=== PATIENT | female | born 1980 | race Caucasian/White ===

== ENCOUNTER 2017-03-13 10:54 | Emergency (ER) | payer OTHER ==
[~2017-03-13] VITALS: Ht 165.1 cm; Wt 84.5 kg
[~2017-03-13 10:54] MED LIST: [UNRECOGNIZED DRUG - REMARK]
[2017-03-13 10:56] VITALS: Ht 165.1 cm; Wt 84.5 kg
[2017-03-13] MEDS ORDERED: ALBUTEROL 0.083% (NEB) 2.5 MG/3 ML AMP HHN STA (11:08)
[2017-03-13] MEDS ORDERED: PRED20TA PO (11:47)
[2017-03-13] MEDS ORDERED: IBUP-1542 PO (11:48)
[2017-03-13] MEDS ORDERED: ALBU18HF INHALATION (11:48)
--- NOTE | 2017-03-13 11:53 | ERD ---
ER Documentation Chief Complaint Date/Time DATE: 03/13/17 TIME: 11:51 Chief Complaint CHEST CONGESTION X 3 DAYS HPI This 36-year-old female presents with coughing and congestion for the last 3 days. She has no significant mucus. She denies chest pain, fever. She feels like "airWAY is blocked "she has history of asthma. She has additional complaint of bilateral heel pain worsening over the last few months. She denies any trauma or puncture wound. ROS All systems reviewed and are negative except as per history of present illness. Medications Home Meds Active Scripts Ibuprofen* (Motrin*) 600 Mg Tab, 600 MG PO Q6, #20 TAB Prov:ADY KEE MD 03/13/17 Albuterol Sulfate* (Ventolin HFA*) 18 Gm Hfa.aer.ad, 2 PUFF INHALATION Q4H for 6 Days, #1 INHALER Prov:ADY KEE MD 03/13/17 Prednisone* (Prednisone*) 20 Mg Tab, 40 MG PO DAILY for 5 Days, TAB Prov:ADY KEE MD 03/13/17 Reported Medications [Calming Med] No Conflict Check 04/10/14 Allergies Allergies: Coded Allergies: No Known Allergy (Verified , 04/10/14) PMhx/Soc Medical and Surgical Hx: pt denies Medical Hx, pt denies Surgical Hx History of Surgery: Yes (FOOT SX) Anesthesia Reaction: No Hx Neurological Disorder: No Hx Respiratory Disorders: No Hx Cardiac Disorders: No Hx Psychiatric Problems: No Hx Miscellaneous Medical Probl: No Hx Alcohol Use: Yes Hx Substance Use: No Hx Tobacco Use: No Smoking Status: Never smoker Physical Exam Vitals Vital Signs Date Time Temp Pulse Resp B/P Pulse Ox O2 Delivery O2 Flow Rate FiO2 03/13/17 11:26 98 18 99 21 03/13/17 10:56 98.1 98 18 122/74 99 Physical Exam Const: [], Ivd-yrx-[id number] Head: Atraumatic Eyes: Normal Conjunctiva ENT: Normal External Ears, Nose and Mouth. TMs and oropharynx normal. Pupils nasal congestion per Neck: Full range of motion..~ No meningismus. Resp: Clear to auscultation bilaterally. Slight forced wheeze without significant wheeze at rest no rales or retractions. Cardio: Regular rate and rhythm, no murmurs Abd: Soft, non tender, non distended. Normal bowel sounds Skin: No petechiae or rashes Back: No midline or flank tenderness Ext: No cyanosis, or edema. Mild bilateral heel tenderness without erythema , warmth, deformities, deficits or weakness or signs of ischemia. Neur: Awake and alert Psych: Normal Mood and Affect Results 24 hrs Current Medications Medications (Trade) Dose Ordered Sig/Barrera Route PRN Reason Start Time Stop Time Status Last Admin Dose Admin Albuterol (Proventil 0.083% (Neb)) 2.5 mg ONCE STAT HHN 03/13/17 11:08 03/13/17 11:10 DC 03/13/17 11:25 Procedures/MDM Patient is given albuterol treatment 1. Patient had no wheezing clear lungs on serial exam. Patient presents with URI symptoms and mild reactive airway disease. There is no evidence of respiratory distress or hypoxemia. Patient will be treated with Ventolin and prednisone and primary care follow-up. Additionally she will be given ibuprofen for appears to be plantar fasciitis. Signs and symptoms do not suggest fracture, foreign body, significant bacterial infection. The patient was stable with no new complaints during the ER course. Clinically, there is no current evidence to suggest meningitis, sepsis, acute abdomen, pneumonia, acute coronary syndrome, pulmonary embolism, or any other emergent condition appearing to require further evaluation or hospitalization. The patient should certainly return for any new or worsening symptoms per the aftercare instructions. They should otherwise follow-up with her primary care doctor for reevaluation this week. Departure Diagnosis: Primary Impression: URI, acute Additional Impression: Chest congestion Condition: Stable Patient Instructions: Plantar Fasciitis, Uri, Viral W/ Wheezing (Adult) Additional Instructions: Recheck for new or worsening symptoms or primary care doctor. ADY KEE MD Mar 13, 2017 11:53
== END 2017-03-13 11:50 | disposition home or self-care (01) ==
LOC: FTE 10:54
DX: J06.9 Acute upper respiratory infection, unspecified (principal); J45.909 Unspecified asthma, uncomplicated
CPT/HCPCS: 94664; Z7502; Z7610